=== PATIENT | male | born 2000 | race Caucasian/White ===

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

== ENCOUNTER 2023-01-14 13:43 | Inpatient (IN) | payer BC ==
[~2023-01-14] VITALS: Ht 172.7 cm; Wt 62.4 kg
[2023-01-14 14:30] LABS: Urine Bacteria NONE SEEN /hpf (None Seen); Urine Blood Negative /uL (Negative); Urine Clarity Clear (Clear); Urine Color Yellow (Yellow); Urine Mucus FEW (None Seen); Urine Protein, UAD 1+ (Negative); Urine Specific Gravity 1.035 (1.001-1.035); Urine WBC 7 /hpf (0 - 3)
[2023-01-14 14:41] LABS: Basophils # (auto) 0 10 ^3/uL (0-0.2); Basophils % (auto) 0.2 % (0.0-2.0); Eosinophils # (auto) 0.1 10 ^3/uL (0-0.8); Hematocrit 39.4 % (41.0-53.0); Hemoglobin 13.7 g/dL (13.5-17.5); Lymphocytes # (auto) 1.8 10 ^3/uL (0.4-5.4); Lymphocytes % (auto) 14.1 % (10.0-50.0); Mean Corpuscular Hemoglobin 32.4 pg (28.0-32.0); Mean Corpuscular Hgb Conc. 34.7 g/dL (32.0-36.0); Mean Corpuscular Volume 93.6 fL (80.0-100.0); Monocytes # (auto) 1.5 10 ^3/uL (0-1.3); Monocytes % (auto) 12.1 % (0.0-12.0); Neutrophils # (auto) 9.2 10 ^3/uL (1.6-8.6); Neutrophils % (auto) 72.6 % (37.0-80.0); Red Blood Cells 4.21 10^6/uL (4.5-5.90); Red Cell Distribution Width 12.1 % (11.8-14.3); White Blood Cell 12.7 10^3/uL (4.4-10.8)
[2023-01-14 14:55] LABS: Alanine Aminotransferase 49 U/L (7-40); Albumin 4.7 g/dL (3.2-4.8); Alkaline Phosphatase 76 U/L (46-116); Anion Gap 7 (5-15); Aspartate Aminotransferase 32 U/L (13-40); BUN/Creatinine Ratio 12.8 (10.0-20.0); Blood Urea Nitrogen 14 mg/dL (9-23); Calcium 9.7 mg/dL (8.5-10.1); Carbon Dioxide 32 mmol/L (20-30); Chloride 96 mmol/L (98-107); Glucose 106 mg/dL (74-106); Potassium 3.3 mmol/L (3.5-5.1); Sodium 135 mmol/L (136-145)
[2023-01-14 14:56] LABS: Bilirubin, Total 1.2 mg/dL (0.2-1.0); Total Protein 8.1 g/dL (5.7-8.2)
[2023-01-14] MEDS ORDERED: IOHEXOL 300 MG/ML 100ML BOTTLE IJ ONE (15:12)
[2023-01-14 15:40] LABS: Amphetamine Screen, Urine Neg (NEGATIVE); Barbiturate Scree,Urine Neg (NEGATIVE); Benzodiazephine Screen, Urine Neg (NEGATIVE); Cocaine Screen, Urine Neg (NEGATIVE)
[2023-01-14 15:41] LABS: Cannabinoid Screen, Urine Pos (NEGATIVE); Opiate Scree,Urine Neg (NEGATIVE); Phencyclidine Screen, Urine Neg (NEGATIVE)
[2023-01-14 16:02] LABS: Blood Alcohol < 3.0 mg/dL (<10); Lipase 44 U/L (12-53)
[2023-01-14] MEDS ORDERED: fentaNYL CITRATE 100 MCG/2 ML VL IV ONE (16:15)
[2023-01-14] MEDS ORDERED: ONDANSETRON HCL 4 MG/2 ML VIAL IV ONE (16:15)
[2023-01-14] MEDS ORDERED: SODIUM CHLORIDE 0.9% 1,000 ML IV ONE (16:15)
[2023-01-14] MEDS ORDERED: PIPERACILLIN-TAZOB 3.375GM 100 ML IV ONE (16:15)
[2023-01-14 17:30] VITALS: O2SAT 99
[2023-01-14] MEDS: SODIUM CHLORIDE 0.9% 1,000 ML IV SCH (18:11)
[2023-01-14] MEDS ORDERED: POTASSIUM EFFERVESENT TAB 25 MEQ PO ONE (18:15)
[2023-01-14] MEDS ORDERED: PANTOPRAZOLE 40 MG/10 ML VIAL INJ IV ONE (18:15)
[2023-01-14 18:44] LABS: INR 1.1 (0.9-1.15); Partial Thromboplastin Time 29.9 SEC (24.5-34.5); Prothrombin Time 11.5 sec (9.3-11.8)
[2023-01-14] MEDS: MORPHINE SULFATE INJ 2 MG/ml SYRG IV PRN ×2 (18:45→22:40)
[2023-01-14 20:01] VITALS: PULSE 83; RESP 26; O2SAT 97
[2023-01-14] MEDS: ONDANSETRON HCL 4 MG/2 ML VIAL IV PRN (22:40)
[2023-01-14] MEDS: PIPERACILLIN-TAZOB 3.375GM 100 ML IV SCH (23:00)
[2023-01-15] MEDS: SODIUM CHLORIDE 0.9% 1,000 ML IV SCH ×3 (02:44→19:00)
[2023-01-15 04:00] VITALS: RESP 20; O2SAT 98
[2023-01-15] MEDS: PIPERACILLIN-TAZOB 3.375GM 100 ML IV SCH ×2 (06:08→17:11)
[2023-01-15 07:25] LABS: Basophils # (auto) 0 10 ^3/uL (0-0.2); Basophils % (auto) 0.2 % (0.0-2.0); Eosinophils # (auto) 0.1 10 ^3/uL (0-0.8); Eosinophils % (auto) 0.6 % (0.0-7.0); Hematocrit 38.3 % (41.0-53.0); Lymphocytes # (auto) 1.8 10 ^3/uL (0.4-5.4); Lymphocytes % (auto) 10.5 % (10.0-50.0); Mean Corpuscular Hemoglobin 31.5 pg (28.0-32.0); Mean Corpuscular Volume 92.5 fL (80.0-100.0); Monocytes # (auto) 1.8 10 ^3/uL (0-1.3); Monocytes % (auto) 10.6 % (0.0-12.0); Neutrophils # (auto) 13.1 10 ^3/uL (1.6-8.6); Neutrophils % (auto) 78.1 % (37.0-80.0); Red Blood Cells 4.14 10^6/uL (4.5-5.90); Red Cell Distribution Width 11.8 % (11.8-14.3); White Blood Cell 16.7 10^3/uL (4.4-10.8)
[2023-01-15 07:45] VITALS: PULSE 96; RESP 16; O2SAT 96
[2023-01-15 08:15] LABS: Alanine Aminotransferase 35 U/L (7-40); Albumin 4.1 g/dL (3.2-4.8); Alkaline Phosphatase 61 U/L (46-116); Anion Gap 10 (5-15); Aspartate Aminotransferase 18 U/L (13-40); BUN/Creatinine Ratio 13.5 (10.0-20.0); Blood Urea Nitrogen 14 mg/dL (9-23); Carbon Dioxide 28 mmol/L (20-30); Chloride 100 mmol/L (98-107); Glucose 94 mg/dL (74-106); Potassium 3.8 mmol/L (3.5-5.1); Sodium 138 mmol/L (136-145)
[2023-01-15 08:16] LABS: Bilirubin, Total 1.2 mg/dL (0.2-1.0); Total Protein 6.8 g/dL (5.7-8.2)
[2023-01-15 08:19] LABS: Calcium 8.8 mg/dL (8.5-10.1)
[2023-01-15] MEDS ORDERED: METOCLOPRAMIDE HCL 5MG/ml INJ 2ml VIAL IV PRN (09:45)
[2023-01-15] MEDS ORDERED: MORPHINE SULFATE INJ 2 MG/ml SYRG IV PRN ×2 (09:45→14:00)
[2023-01-15] MEDS ORDERED: HYDROmorphone HCL 2 MG/ML VL/or syr IV PRN (09:45)
[2023-01-15] MEDS ORDERED: NEOSTIGMINE 1 MG/ML INJ (10mg/10ML VIAL) ONE (10:06)
[2023-01-15] MEDS ORDERED: fentaNYL CITRATE 100 MCG/2 ML VL ONE (10:06)
[2023-01-15] MEDS ORDERED: DexAMETHasone SOD PHOS 10MG/1ML VIAL INJ ONE (10:06)
[2023-01-15] MEDS ORDERED: MEPERIDINE HCL (25 MG/ML) 1ML VIAL ONE (10:06)
[2023-01-15] MEDS ORDERED: ROCURONIUM 10MG/ML 10ML VIAL IV ONE (10:06)
[2023-01-15] MEDS ORDERED: ONDANSETRON HCL 4 MG/2 ML VIAL ONE (10:06)
[2023-01-15] MEDS ORDERED: MIDAZOLAM HCL 2MG/2ML 2ml VIAL (1mg/ml) ONE (10:06)
[2023-01-15] MEDS ORDERED: PROPOFOL 10 MG/ML 20 ML IV ONE (10:06)
[2023-01-15] MEDS ORDERED: SODIUM CHLORIDE LOCK 10 ML ONE (10:06)
[2023-01-15] MEDS ORDERED: fentaNYL CITRATE 5 ML ONE (10:59)
[2023-01-15] MEDS ORDERED: SUGAMMADEX 200mg/2ml Vial (100MG/ML) IV ONE (11:18)
[2023-01-15] MEDS: HYDROmorphone HCL 2 MG/ML VL/or syr IV PRN ×4 (11:53→13:03)
[2023-01-15] MEDS: MORPHINE SULFATE INJ 2 MG/ml SYRG IV PRN (13:18)
[2023-01-15] MEDS ORDERED: MORPHINE SULFATE INJ 2 MG/ml SYRG IV ONE (14:45)
[2023-01-15] MEDS: PANTOPRAZOLE 40 MG/10 ML VIAL INJ IV SCH (15:30)
[2023-01-15 15:35] VITALS: RESP 18
[2023-01-15 15:53] VITALS: BP 113/71; PULSE 83; RESP 17; TEMP 97.9; O2SAT 94
[2023-01-15] MEDS ORDERED: SUCCINYLCHOLINE CHLORIDE 20 MG/ML 10ML VIAL IV ONE (16:14)
[2023-01-15] MEDS: ONDANSETRON HCL 4 MG/2 ML VIAL IV PRN (19:02)
[2023-01-15] MEDS: MORPHINE SULFATE 4 MG/ML SYR/VIAL IV PRN (19:05)
[2023-01-15 20:00] VITALS: PULSE 90; RESP 18; O2SAT 98
[2023-01-15 22:00] VITALS: BP 111/63; PULSE 95; RESP 18; TEMP 98.3; O2SAT 98
[2023-01-16] MEDS: MORPHINE SULFATE 4 MG/ML SYR/VIAL IV PRN ×6 (01:11→22:04)
[2023-01-16] MEDS: PIPERACILLIN-TAZOB 3.375GM 100 ML IV SCH ×3 (01:15→17:39)
[2023-01-16] MEDS: SODIUM CHLORIDE 0.9% 1,000 ML IV SCH ×2 (03:20→17:44)
[2023-01-16 04:00] VITALS: BP 106/71; PULSE 87; RESP 16; TEMP 98.6; O2SAT 97
[2023-01-16] MEDS: ONDANSETRON HCL 4 MG/2 ML VIAL IV PRN ×4 (07:13→22:03)
[2023-01-16 08:35] VITALS: BP 126/71; PULSE 81; RESP 18; TEMP 98.7; O2SAT 95
[2023-01-16] MEDS: PANTOPRAZOLE 40 MG/10 ML VIAL INJ IV SCH (08:47)
[2023-01-16 12:53] VITALS: BP 125/69; PULSE 91; RESP 17; TEMP 98.4; O2SAT 98
[2023-01-16 17:00] VITALS: BP 111/61; PULSE 102; RESP 17; TEMP 98.4; O2SAT 98
[2023-01-16 20:00] VITALS: PULSE 88
[2023-01-16 22:00] VITALS: BP 114/69; PULSE 97; RESP 18; TEMP 98.1; O2SAT 92
[2023-01-17] VITALS (7 sets, daily range): BP systolic 110–119; BP diastolic 68–77; PULSE 62–91; RESP 16–19; TEMP 98.2–98.6; O2SAT 96–98
[2023-01-17] MEDS: PIPERACILLIN-TAZOB 3.375GM 100 ML IV SCH ×3 (00:32→17:56)
[2023-01-17] MEDS: SODIUM CHLORIDE 0.9% 1,000 ML IV SCH ×3 (04:04→21:52)
[2023-01-17] MEDS: ONDANSETRON HCL 4 MG/2 ML VIAL IV PRN ×2 (06:20→21:45)
[2023-01-17] MEDS: MORPHINE SULFATE 4 MG/ML SYR/VIAL IV PRN ×4 (06:21→21:46)
[2023-01-17] MEDS: PANTOPRAZOLE 40 MG/10 ML VIAL INJ IV SCH (09:03)
[2023-01-18] MEDS: PIPERACILLIN-TAZOB 3.375GM 100 ML IV SCH ×3 (00:56→16:33)
[2023-01-18 05:00] VITALS: BP 110/67; PULSE 61; RESP 18; TEMP 98.1; O2SAT 99
[2023-01-18] MEDS: ONDANSETRON HCL 4 MG/2 ML VIAL IV PRN ×3 (06:32→21:13)
[2023-01-18] MEDS: MORPHINE SULFATE 4 MG/ML SYR/VIAL IV PRN ×3 (06:33→21:13)
[2023-01-18] MEDS: SODIUM CHLORIDE 0.9% 1,000 ML IV SCH ×3 (06:33→20:58)
[2023-01-18] MEDS: PANTOPRAZOLE 40 MG/10 ML VIAL INJ IV SCH (08:57)
[2023-01-18 09:10] VITALS: BP 108/63; PULSE 75; RESP 19; TEMP 98.5; O2SAT 97
[2023-01-18 12:59] VITALS: BP 110/69; PULSE 82; RESP 19; TEMP 98.3; O2SAT 97
[2023-01-18] MEDS ORDERED: ACETAMINOPHEN/CODEINE#3 (300/30mg) TAB PO PRN (13:15)
[2023-01-18 16:21] VITALS: BP 105/70; PULSE 72; RESP 18; TEMP 98.4; O2SAT 98
[2023-01-18 22:00] VITALS: BP 102/71; PULSE 77; RESP 16; TEMP 98.5; O2SAT 95
[2023-01-19] MEDS: PIPERACILLIN-TAZOB 3.375GM 100 ML IV SCH ×2 (02:26→08:57)
[2023-01-19 05:00] VITALS: BP 104/58; PULSE 65; RESP 16; TEMP 98.2; O2SAT 97
[2023-01-19] MEDS: SODIUM CHLORIDE 0.9% 1,000 ML IV SCH (05:26)
[2023-01-19 08:00] VITALS: PULSE 61; RESP 18; O2SAT 97
[2023-01-19 08:32] VITALS: BP 104/63; PULSE 61; RESP 18; TEMP 98.4; O2SAT 98
[2023-01-19] MEDS: PANTOPRAZOLE 40 MG/10 ML VIAL INJ IV SCH (08:57)
[2023-01-19] MEDS ORDERED: LEVO500T91 PO (11:12)
[2023-01-19] MEDS ORDERED: MET500T PO (11:12)
[2023-01-19] MEDS ORDERED: HYDR-4902 PO (11:12)
== END 2023-01-19 16:15 | disposition home or self-care (01) | DRG 853 ==
LOC: ER 13:43 → OVERFLOW 18:02 → EAST 01-15 15:53
PROVIDERS: ADMIT Nurse Practitioner Family; ATTEND Family Medicine
PROC: 0WJG4ZZ Inspection of Peritoneal Cavity, Percutaneous Endoscopic Approach (ICD-10-PCS; 2023-01-15)
PROC: 0DTJ0ZZ Resection of Appendix, Open Approach (ICD-10-PCS; principal; 2023-01-15 10:19)
DX: A41.9 Sepsis, unspecified organism (principal); K35.33 Acute appendicitis with perforation, localized peritonitis, and gangrene, with abscess; K52.9 Noninfective gastroenteritis and colitis, unspecified; E87.6 Hypokalemia; K66.0 Peritoneal adhesions (postprocedural) (postinfection); R56.9 Unspecified convulsions; E86.0 Dehydration; Z90.49 Acquired absence of other specified parts of digestive tract; Z82.0 Family history of epilepsy and other diseases of the nervous system; Z81.8 Family history of other mental and behavioral disorders; Z53.31 Laparoscopic surgical procedure converted to open procedure
CPT/HCPCS: 36415; 74177; 80053; 80307; 80320; 81001; 83605; 83690; 85025; 85610; 85730; 86850; 86900; 86901; 87070; 87075; 87205; C9113; G0378; J0330; J1100; J2250; J2405; J2543; J2704

== ENCOUNTER 2023-03-01 16:08 | Emergency (ER) | payer BC ==
[~2023-03-01] VITALS: Ht 172.7 cm; Wt 57.3 kg
[~2023-03-01 16:08] MED LIST: HYDR-4902 PO; LEVO500T91 PO; MET500T PO
[2023-03-01 16:17] VITALS: BP 129/87; PULSE 112; RESP 18; O2SAT 96
[2023-03-01 18:22] LABS: Urine Bacteria NONE SEEN /hpf (None Seen); Urine Blood Negative /uL (Negative); Urine Clarity Clear (Clear); Urine Color Yellow (Yellow); Urine Mucus FEW (None Seen); Urine Protein, UAD TRACE (Negative); Urine Specific Gravity 1.033 (1.001-1.035); Urine Urobilinogen Normal (Negative); Urine WBC 1 /hpf (0 - 3)
[2023-03-01] MEDS ORDERED: ONDANSETRON ODT 4 MG TAB PO ONE (19:15)
[2023-03-01] MEDS ORDERED: ACETAMINOPHEN 500 MG TAB PO ONE (19:15)
== END 2023-03-01 19:45 | disposition left against medical advice (07) ==
LOC: ER 16:08
DX: R11.2 Nausea with vomiting, unspecified (principal); Z98.890 Other specified postprocedural states; Z53.21 Procedure and treatment not carried out due to patient leaving prior to being seen by health care provider
CPT/HCPCS: 81001